=== PATIENT | female | born 1995 | race Asian ===

== ENCOUNTER 2017-09-15 23:25 | Emergency (ER) | payer BC, OTHER ==
[2017-09-16 00:47] LABS: PLATELET COUNT 329 10^3/uL (150-400)
--- NOTE | 2017-09-16 00:51 | CPEKG ---
Heart Rate: 85 RR Interval: 706 P-R Interval: 140 QRSD Interval: 76 QT Interval: 332 QTC Interval: 395 P [place]: 56 QRS [place]: 72 T Wave [place]: 55 EKG Severity - NORMAL ECG - EKG Impression: SINUS RHYTHM Electronically Signed By: Adrian Qureshi 17-Sep-2017 14:52:35
--- NOTE | 2017-09-16 03:06 | EDPHY ---
H & P Stated Complaint: fell while intoxicated - Personal History LMP (Females 10-55): 1-7 Days Ago Current Tetanus/Diphtheria Vaccine: Unsure Current Tetanus Diphtheria and Acellular Pertussis (TDAP): Unsure - Medical/Surgical History Hx Asthma: No Hx Chronic Respiratory Disease: No Hx Diabetes: No Hx Cardiac Disease: No Hx Renal Disease: No Hx Cirrhosis: No Hx Alcoholism: No Hx HIV/AIDS: No Hx Splenectomy or Spleen Trauma: No Other PMH: Chiari malformation. Spinal issues? - Social History Smoking Status: Never smoked Time Seen by Provider: 09/15/17 23:30 HPI/ROS: Chief complaint: Found down, possibly intoxicated History of present illness: This is a 21-year-old female who was brought to the emergency department by her friends after she was found down, possibly intoxicated. Apparently the mother of the patient called the patient's boyfriend to go check on her. The patient's boyfriend found her laying on the ground. She did have a cut on her forehead. She was not particularly responsive. He does believe she has been drinking alcohol. She is taking benzodiazepines to help with sleep. Review of systems: Unable to obtain given patient's level of consciousness ( Jimmie Thornton) - Physical Exam Exam: General Appearance: Alert to painful stimuli Eyes: PERRLA ENT: No hemotympanum, no butler sign, no raccoon eyes Respiratory: Lungs clear to auscultation bilaterally Cardiac: Regular rate and rhythm. Gastrointestinal: Bowel sounds normal. Soft, nondistended, nontender. Neurological: Alert to painful stimuli. Skin: 1 cm laceration to the right forehead otherwise a head-to-toe examination does not reveal other traumatic lesions. Musculoskeletal: The head is without crepitus, bony deformity or step-off. The spine is without crepitus, bony deformity or step-off. Chest wall appears to be intact without crepitus, bony deformity or subcutaneous air. Purposeful movement of all extremities. (Jimmie Thornton) Constitutional: Initial Vital Signs Temperature (C) 36.9 C 09/15/17 23:27 Heart Rate 91 09/15/17 23:27 Respiratory Rate 16 09/15/17 23:27 Blood Pressure 105/65 09/15/17 23:27 O2 Sat (%) 97 06/01/18 23:27 O2 Delivery Mode Room Air Allergies/Adverse Reactions: No Known Allergies Allergy (Verified 07/17/15 14:33) Home Medications: Medication Instructions Recorded Microgestin 12/22/13 Medical Decision Making - Diagnostics Imaging: Discussed imaging studies w/ machine scallop cutter Radiologist Procedures: Procedure: Laceration repair. Verbal consent was obtained from the patient. The 2 cm laceration on the right forehead was anesthetized in the usual fashion. The wound was irrigated, draped and explored to its base with a gloved finger. There were no deep structures involved. No tendon injury was identified. The wound was repaired with 6 0 Prolene, 5 simple interrupted sutures. The wound repair was simple. The procedure was performed by myself. (Jimmie Thornton) ED Course/Re-evaluation: Patient is seen under the supervision of my secondary supervising physician Dr. Gi Lopez. Patient presents to the emergency department after being found passed out. Evidence of head trauma with laceration noted. Laceration repaired. CT scan of the head and neck are negative. Baseline blood studies largely unremarkable except for an elevated alcohol level. She appears to be intoxicated. I have discussed the case with her home doctor, Dr. Adrian Qureshi who believes this is likely alcohol with an interaction with her benzodiazepines. He requests that she be observed in the emergency room until she karen up. Care of patient is turned over to Dr. Lopez at end of shift ( Jimmie Thornton) 6:33 a.m.- PHYSICIAN DOCUMENTATION: The patient was evaluated and managed by the Physician Burn Out Tender Lace. My co- signature indicates that I have reviewed this chart and I agree with the findings and plan of care as documented. I am the secondary supervising physician. I reassessed the patient at this time. She is awake, alert, walking around the emergency department. She feels well with no complaints and denies any headache. I discussed treatment of her wound with her. I have answered her questions. I explained to her that I suspect that her fall was related to her alcohol use. I have advised her that she needs to be careful with her alcohol use. She will be discharged from the emergency department. (Gi Lopez) Differential Diagnosis: Included but not limited to alcohol intoxication, polysubstance abuse, intracranial bleed or injury, syncope of multiple etiologies (Jimmie Thornton) - Data Points Laboratory Results: Laboratory Results 09/16/17 00:35 09/16/17 00:35 09/16/17 09/16/17 09/16/17 00:35 00:35 00:35 WBC 6.25 10^3/uL 10^3/uL (3.80-9.50) RBC 4.44 10^6/uL 10^6/uL (4.18-5.33) Hgb 12.6 g/dL g/dL (12.6-16.3) Hct 38.9 % % (38.0-47.0) MCV 87.6 fL fL (81.5-99.8) MCH 28.4 pg pg (27.9-34.1) MCHC 32.4 g/dL g/dL (32.4-36.7) RDW 13.0 % % (11.5-15.2) Plt Count 329 10^3/uL 10^3/uL (150-400) MPV 8.1 fL L fL (8.7-11.7) Neut % (Auto) 51.4 % % (39.3-74.2) Lymph % (Auto) 40.3 % % (15.0-45.0) Hall % (Auto) 6.6 % % (4.5-13.0) Eos % (Auto) 1.1 % % (0.6-7.6) Baso % (Auto) 0.3 % % (0.3-1.7) Nucleat RBC Rel Count 0.0 % % (0.0-0.2) Absolute Neuts (auto) 3.21 10^3/uL 10^3/uL (1.70-6.50) Absolute Lymphs (auto) 2.52 10^3/uL 10^3/uL (1.00-3.00) Absolute Monos (auto) 0.41 10^3/uL 10^3/uL (0.30-0.80) Absolute Eos (auto) 0.07 10^3/uL 10^3/uL (0.03-0.40) Absolute Basos (auto) 0.02 10^3/uL 10^3/uL (0.02-0.10) Absolute Nucleated RBC 0.00 10^3/uL 10^3/uL (0-0.01) Immature Gran % 0.3 % % (0.0-1.1) Immature Gran # 0.02 10^3/uL 10^3/uL (0.00-0.10) Sodium 151 mEq/L H mEq/L (135-145) Potassium 4.0 mEq/L mEq/L (3.3-5.0) Chloride 114 mEq/L H mEq/L (97-110) Carbon Dioxide 24 mEq/l mEq/l (22-31) Anion Gap 13 mEq/L mEq/L (8-16) BUN 12 mg/dL mg/dL (7-23) Creatinine 0.8 mg/dL mg/dL (0.6-1.0) Estimated GFR > 60 Glucose 78 mg/dL mg/dL (70-100) Calcium 9.5 mg/dL mg/dL (8.5-10.4) Beta HCG, Qual NEGATIVE Salicylates < 1.0 mg/dL L mg/dL (2.0-20.0) Acetaminophen < 10 mcg/mL L mcg/mL (10-30) Ethyl Alcohol 168 mg/dL H mg/dL (0-10) Departure - Departure Disposition: Home, Routine, Self-Care Clinical Impression: Alcoholic intoxication Qualifiers: Complication of substance-induced condition: uncomplicated Qualified Code(s): F10.920 - Alcohol use, unspecified with intoxication, uncomplicated Laceration of eyebrow, right Qualifiers: Encounter type: initial encounter Qualified Code(s): S01.111A - Laceration without foreign body of right eyelid and periocular area, initial encounter Condition: Good Instructions: Care For Your Stitches (ED), Laceration (ED), Alcohol Intoxication (ED), Acute Wounds (ED) Additional Instructions: Follow-up with your doctor next week for recheck Stitches to be removed in 5-7 days If symptoms worsen or new symptoms develop return to the emergency room for recheck Referrals: Patient,NotPresent [Primary Care Provider] - As per Instructions Adrian Qureshi MD [Medical Doctor] - As per Instructions
[2017-09-21 09:25] VITALS: BP 100/74
== END 2017-09-16 06:52 | disposition home or self-care (01) ==
PROC: 0HQ1XZZ Repair Face Skin, External Approach (ICD-10-PCS; principal; 2017-09-15)
DX: S01.111A Laceration without foreign body of right eyelid and periocular area, initial encounter (principal); F10.920 Alcohol use, unspecified with intoxication, uncomplicated; W18.39XA Other fall on same level, initial encounter
CPT/HCPCS: G0480